=== PATIENT | female | born 1960 | race Caucasian/White ===

== ENCOUNTER 2017-08-20 18:54 | Emergency (ER) | payer OTHER, MEDICAID ==
[2017-08-20 19:02] VITALS: BP 131/84; BMI 29.2
--- NOTE | 2017-08-20 19:21 | DR.GENAD ---
HPI - PCP Primary Care Physician: nfd - Complaint/Symptoms Chief Complaint Doctors Comments: Patient denies trauma. Admits to pain of left hand digit #3 (MPJ) Chief Complaint:: pain in left hand - Source History Provided: Patient - Mode of Arrival Mode of Arrival: Ambulatory - Timing Onset of Chief Complaint: 08/20/17 PMH - PMH Past Medical History: Yes Past Medical History: Anxiety, Arthritis, Coronary Artery Disease, Depression, GERD, Hypertension Past Medical History Comment: cabrera irwin, chronic pack pain Past Surgical History: Yes Surgical History: ADMIN ASST Surgery, Other Past Surgical History Comment: ablasion, tubal - Family History History of Family Medical Conditions: Yes Family Medical History: Cancer, [place], Coronary Artery Disease, Hypertension - Social History Does patient currently use any type of tobacco product: No Have you used tobacco products in the last 12 months: No Type of Tobacco Use: None Does any household member use tobacco: No Alcohol Use: None Do you use any recreational Drugs:: No Lives With: Alone Lives Where: Home - infectious screening In the last 2 months have you had wt loss of >10#?: NO Have you had fever, night sweats or hemotysis?: No Have you traveled outside the country in the last 6 months?: No Isolation: Standard ROS - Review of Systems Constitutional: negative: Diaphoresis Eyes: No Symptoms Reported ENTM: No Symptoms Reported Respiratoy: No Symptoms Reported Cardiovascular: No Symptoms Reported Gastrointestinal/Abdominal: No Symptoms Reported Genitourinary: No Symptoms Reported Neurological: No Symptoms Reported Musculoskeletal: No Symptoms Reported Integumentary: No Symptoms Reported Hematologic/Lymphatic: No Symptoms Reported Endocrine: No Symptoms Reported Psychiatric: No Symptoms Reported All Other Systems: Reviewed and Negative PE - Vital Signs Vitals: Temperature 98.5 F Pulse Rate 78 Respiratory Rate 16 Blood Pressure [Right Arm] 103/63 Blood Pressure [Left Arm] 141/70 Blood Pressure 131/84 O2 Sat by Pulse Oximetry 95 - General General Appearance: Alert, In No Apparent Distress - Head Head Exam: Normal Inspection, Atraumatic - Eyes Eye exam: Normal Appearance, PERRL, EOMI - ENT ENT Exam: Normal Exam External Ear Exam: Normal External Inspection TM/Canal Exam: Bilateral Normal Nose Exam: Normal Nose Exam Mouth Exam: Normal Inspection Throat Exam: Normal Inspection - Neck Neck Exam: Normal Inspection, Full ROM - Chest Chest Inspection: Normal Inspection - Respiratory Respiratory Exam: Normal Lung Sounds Bilat Respiratory Exam: Bilateral Clear to Auscultation - Cardiovascular Cardiovascular Exam: Regular Rate, Normal Rhythm - Abdominal Exam Abdominal Exam: Normal Inspection, Normal Bowel Sounds Abdominal Tenderness: negative: RUQ, RLQ, LUQ, LLQ, Epigastrium, Suprapubic, Diffuse, Mild, Moderate, Severe, Other - Extremities Extremities Exam: Normal Inspection, Full ROM - Back Back Exam: Normal Inspection - Neurologic Neurological Exam: Alert, Oriented X3, CN II-XII Intact - Psychiatric Psychiatric Exam: Normal Affect - Skin Skin Exam: Warm, Dry, Intact ROR - XRAY XRAY Interpreted by: Self (negative) - Diagnosis Discharge Problem: Contusion of hand, left Qualifiers: Encounter type: initial encounter Qualified Code(s): S60.222A - Contusion of left hand, initial encounter - Discharge Plan Condition: Stable - Follow ups/Referrals Follow ups/Referrals: NFD,None [Primary Care Provider] - 3 days - Instructions
--- NOTE | 2017-08-20 22:14 | RAD ---
EXAM: Left hand x-ray INDICATION: Pain 4th digit COMPARISION: No priors for comparison TECHNIQUE: AP, lateral, and oblique, three views FINDINGS: No acute fracture or dislocation. The joint spaces are preserved. The soft tissues are normal. No rad iopaque foreign body. IMPRESSION: Normal left hand x-ray exam Reported By:
== END 2017-08-20 20:10 | disposition home or self-care (01) ==
LOC: ER 19:04
DX: S60.222A Contusion of left hand, initial encounter (principal); Y33.XXXA Other specified events, undetermined intent, initial encounter; Y92.9 Unspecified place or not applicable
CPT/HCPCS: 73130; 99282

== ENCOUNTER → 2018-01-28 | Outpatient (CLI) | payer OTHER, MEDICAID ==
--- NOTE | 2018-01-28 14:25 | MRI ---
MRI lumbar spine without contrast. Indication: Chronic lower back pain Technique: Multiplanar, multi sequence imaging of the lumbar spine without IV contrast administration . Findings: Lumbar spine alignment is maintained. There is mild endplate degenerative change at L5-S1. Diffuse disc desiccation is noted throughout the lumbar spine with disc space loss at L4-5 and L5-S1. No localizing bone marrow signal abnormality. No prevertebral or paraspinal soft tissue swelling. Co nus has a normal termination. No abnormality identified within visualized abdomen or pelvis. At T12-L1 unremarkable At L1-2 unremarkable At L2-3 mild facet arthropathy without disc bulge, spinal canal or bony neural foraminal stenosis. At L3-4 broad-based disc bulge with small annular tear within the posterior disc bulge along with fac et arthropathy causes kqdl-hu-fdhmlwid spinal canal stenosis with mild right lateral recess compressi on. No significant bony neural foraminal stenosis. At L4-5 broad-based disc bulge with a right paracentral along with ligamentum flavum hypertrophy and moderate facet arthropathy causes severe spinal canal stenosis and right greater than left lateral re cess compression. There is moderate right and huyv-ob-xfkhhmbz left-sided bony neural foraminal steno sis. At L5-S1 right paracentral disc protrusion with mild facet arthropathy causes mild spinal canal steno sis and moderate right lateral recess compression/effacement of the transiting right S1 nerve root. T here is moderate right and mild left-sided bony neural foraminal stenosis. Impression: Multilevel discogenic degenerative change and facet arthropathy causing varying degrees o f spinal canal and neural foraminal stenosis as described above. Reported By:
== END | disposition home or self-care (01) | DRG 552 ==
LOC: RAD 08:27
PROVIDERS: ATTEND Nurse Practitioner Family
DX: M51.36 Other intervertebral disc degeneration, lumbar region (principal); M51.37 Other intervertebral disc degeneration, lumbosacral region; M48.061 Spinal stenosis, lumbar region without neurogenic claudication
CPT/HCPCS: 72148

== ENCOUNTER → 2018-02-11 | Outpatient (CLI) | payer OTHER, MEDICAID ==
[2018-02-11 10:51] LABS: BASOPHILS # (AUTO) 0.1 X10^3/uL (0.0-0.1); BASOPHILS % (AUTO) 1.3 % (0.2-1.0); EOSINOPHILS # (AUTO) 0.2 x10^3/uL (0.0-0.2); EOSINOPHILS % (AUTO) 3.3 % (0.9-2.9); HEMATOCRIT 36.7 % (36.0-47.0); HEMOGLOBIN 12.3 g/dL (12.0-16.0); LYMPHOCYTES # (AUTO) 1.8 X10^3/uL (1.3-2.9); LYMPHOCYTES % (AUTO) 28.5 % (21.0-51.0); MEAN CORPUSCULAR HEMOGLOBIN 28.1 pg (27.0-34.0); MEAN CORPUSCULAR HGB CONC 33.4 g/dL (33.0-35.0); MEAN CORPUSCULAR VOLUME 84.2 fL (80.0-100.0); MEAN PLATELET VOLUME 7.9 fL (7.4-11.0); MONOCYTES # (AUTO) 0.5 x10^3/uL (0.3-0.8); MONOCYTES % (AUTO) 7.7 % (0.0-13.0); NEUTROPHILS # (AUTO) 3.8 x10^3/uL (2.2-4.8); NEUTROPHILS % (AUTO) 59.2 % (42.0-75.0); PLATELET COUNT 353 X10^3/uL (150.0-450.0); RED BLOOD COUNT 4.36 X10^6/uL (3.5-5.4); RED CELL DISTRIBUTION WIDTH 14.7 % (11.6-16.5); WHITE BLOOD COUNT 6.3 X10^3/uL (3.6-10.0)
[2018-02-11 11:13] LABS: ALANINE AMINOTRANSFERASE 26 Units/L (12-78); ALBUMIN 3.7 g/dL (3.4-5.0); ALKALINE PHOSPHATASE 105 Units/L (46-116); ASPARTATE AMINO TRANSFERASE 18 Units/L (15-37); BLOOD UREA NITROGEN 19 mg/dL (7-18); CALCIUM 8.7 mg/dL (8.5-10.1); CHLORIDE 106 mmol/L (98-107); CHOL/HDL RATIO 3.7 (0.0-5.0); CHOLESTEROL 171 mg/dL (0-200); CREATININE 0.82 mg/dL (0.55-1.02); HDL CHOLESTEROL 46 mg/dL (40-60); SODIUM 141 mmol/L (136-145); TOTAL PROTEIN 7.4 g/dL (6.4-8.2); TRIGLYCERIDES 70 mg/dL (0-150); TSH (3RD GENERATION) 0.869 uIU/mL (0.358-3.74); eGFR BLACK RACES > 60 (>60); eGFR NON BLACK RACES > 60 (>60)
== END ==
LOC: LAB 10:23
PROVIDERS: ATTEND Internal Medicine Cardiovascular Disease
DX: R53.83 Other fatigue (principal); R79.89 Other specified abnormal findings of blood chemistry
CPT/HCPCS: 36415; 80053; 80061; 84443; 85025

== ENCOUNTER → 2018-02-17 | Outpatient (CLI) | payer OTHER, MEDICAID ==
--- NOTE | 2018-02-17 13:46 | CT ---
Indication: Pain Exam: CT cervical spine without contrast. Technique: Axial spiral images were obtained from the base the skull through the clavicles without co ntrast and reconstructed at 2 mm intervals with coronal and sagittal multiplanar reconstructions. Aut omated dose control was utilized. Findings: The cervical vertebra are well aligned. There is nqfg-wr-ihxalxgd disc space narrowing thro ughout with mild marginal osteophytes throughout. No fracture or subluxation is seen. The posterior e lements are intact. The prevertebral soft tissues are normal. The atlantoaxial joint is normal. The n eural foramina clear. The visualized lung apices are clear. No obvious large disc bulge or herniation can be seen and there is no significant spinal stenosis. The paravertebral soft tissues are normal. Impression: Mild to moderate degenerative disc changes throughout the cervical spine with no acute abnormality se en. Reported By:
--- NOTE | 2018-02-17 13:51 | CT ---
Indication: Back pain Exam: CT lumbar spine without contrast. Technique: Axial spiral images were obtained from T12 through the upper sacrum and reconstructed in t he axial plane at 2 mm intervals with coronal and sagittal multiplanar reconstructions. Automated dos e control was utilized. Findings: The lumbar vertebra are well aligned. There is wgtt-gu-qkrmzymf disc space narrowing throug hout which is most severe at L5-S1 with prominent osteophytes at this level. No fracture or subluxati on is seen. The vertebral body height is well maintained throughout. There are sclerotic changes of f acets inferiorly with no pars defects. The paravertebral soft tissues are normal. There is a small di sc bulge and posterior osteophytes at L5-S1 causing mild dural sac effacement and mild neuroforaminal narrowing bilaterally. There is a small asymmetric disc bulge at L4-5 lateralizing to the left causi ng mild dural sac effacement and mild neuroforaminal narrowing on the left. There is a small disc bul ge at L3-4 causing mild dural sac effacement. No aggressive osseous lesion is seen. There are mild hy pertrophic changes of facets throughout with ligament flavum hypertrophy and congenital shortening of the pedicles causing diffuse mild spinal stenosis . Impression: Zsfj-yw-adsuvtfm degenerative disc changes throughout the lumbar spine which is most severe at L5-S1 with no acute abnormality seen. Small disc bulge and posterior osteophytes at L5-S1 causing mild dural sac effacement Asymmetric disc bulge at L4-5 lateralizing to the left causing mild dural sac effacement and neurofor aminal narrowing on the left. Suggest MRI follow-up , if indicated clinically. Small disc bulge at L3-4 . Mild osteoarthritic changes of the facets and congenital shortening of the pedicles causing diffuse m ild spinal stenosis. Reported By:
--- NOTE | 2018-02-17 14:00 | CT ---
CT THORACIC SPINE WITHOUT CONTRAST CLINICAL HISTORY: 57-year-old female with chronic back pain. COMPARISON: None. TECHNIQUE: Multiple, noncontrasted axial CT images were obtained from the cervical-thoracic junction to the thoracolumbar junction and reformatted in the sagittal and coronal planes. FINDINGS: There is a normal thoracic kyphosis. There is preservation of vertebral body and disc space height. T he posterior elements are normal in appearance and alignment. There is no evidence of significant derrell ral foraminal stenosis or central canal compromise. Moderate hiatal hernia. 5.3 x 4.4 x 5.5 cm (AP, transverse and craniocaudad) lesion within the volunteer recruitment coordinator ior mediastinum eccentric to the right abutting the esophagus that contains fat and simple fluid with vasculature present, which appears to be herniated mesentery. Differential discussed below. IMPRESSION: 1. No evidence of acute fracture or malalignment of the thoracic spine. 2. Moderate hiatal hernia. 3. Right-sided posterior mediastinal mass as described above that appears to be herniated mesentery. Differential considerations include but are not limited to esophageal duplication and bronchogenic cy st. Consider upper endoscopy common surgical consultation for diagnostic laparoscopy and CT of the th orax with contrast for further delineation. Reported By:
== END ==
LOC: RAD 12:50
PROVIDERS: ATTEND Nurse Practitioner Family
DX: M54.5 Low back pain (principal); G89.29 Other chronic pain; M51.26 Other intervertebral disc displacement, lumbar region; M51.27 Other intervertebral disc displacement, lumbosacral region; M25.78 Osteophyte, vertebrae
CPT/HCPCS: 72125; 72128; 72131

== ENCOUNTER 2018-02-24 16:28 | Inpatient (IN) | payer OTHER, MEDICAID ==
[2018-02-24] MEDS: DUONEB 0.5 MG/3 MG NEB SCH ×2 (17:39→20:30)
[2018-02-24] MEDS ORDERED: SALINE 3% 15 ML NEB TX ONE (17:43)
[2018-02-24] MEDS ORDERED: TUSSIONEX PENNKINETIC SUSP PO PRN (17:47)
[2018-02-24] MEDS ORDERED: NS 100 ML IV 100 ML IV ONE (17:59)
[2018-02-24] MEDS ORDERED: ZOSYN VIAL 4.5 GM IV ONE (17:59)
[2018-02-24] MEDS ORDERED: NS 1/2 1000 ML IV 1,000 ML IV ONE (18:00)
[2018-02-24 18:13] VITALS: BMI 28.0
[2018-02-24] MEDS ORDERED: NORCO 7.5/325 MG TAB PO PRN (18:13)
[2018-02-24] MEDS ORDERED: LASIX PO PRN (18:13)
--- NOTE | 2018-02-24 18:20 | DR.H&P ---
H&P - History & Physical for Day of: H&P Date: 02/24/18 - Chief Complaint Chief Complaint: SOB, CCC, FEVER, WHEEZING, CENTRAL CHEST PAIN - Allergies Allergies/Adverse Reactions: Allergies Allergy/AdvReac Type Severity Reaction Status Date / Time sulfamethoxazole Allergy Verified 02/24/18 17:01 [From Bactrim] trimethoprim [From Bactrim] Allergy Verified 02/24/18 17:01 verapamil Allergy Verified 02/24/18 17:01 - History of Present Illness History of Present Illness: 57 WF DIRECT ADMIT FROM DR DEL CID OFFICE WITH CO CCC WITH FEVER, CENTRAL CHEST TIGHTNESS, NAUSEA WITH VOMTING AND WHEEZING. PT HAS BEEN TREATED ON OP BASIS FOR BRONCHITIS, PT TOOK ROUND OF ZITHROMAX, STEROIDS AND IM ROCEPHIN AND DEXAMETHASONE WITHOUT IMPROVEMENT. PT STATES SHE FEELS CHEST PRESSURE AND FATIGUE. PT HAS PMH OF COPD, HTN, JOYA, CAD/ARRHYTHMIA, OA. PT ADMITTED FOR TREATEMENT AND EVALUATION OF CHEST PAIN, RESP ILLNESS - Past Medical History Past Medical History: Anxiety, Arthritis, Coronary Artery Disease, Depression, GERD, Hypertension - Past Surgical History Surgical History: LAWN MAINTENANCE WORKER Surgery, Other - Family History Family Medical History: Cancer, [place], Coronary Artery Disease, Hypertension - Social History Does patient currently use any type of tobacco product: No Have you used tobacco products in the last 12 months: No Type of Tobacco Use: None Alcohol Use: None Drug Use: None - Medications Home Medications: Albuterol Sulfate [Ventolin Hfa Inhaler] 2 puff INH QID PRN 02/24/18 [History Confirmed 02/24/18] Alprazolam 1 tab PO BID PRN 02/24/18 [History Confirmed 02/24/18] Esomeprazole Magnesium [NEXIUM 40 MG *] 1 tab PO DAILY 02/24/18 [History Confirmed 02/24/18] Fexofenadine HCl 1 tab PO DAILY 02/24/18 [History Confirmed 02/24/18] Furosemide 1 tab PO DAILY PRN 02/24/18 [History Confirmed 02/24/18] Hydrocodone-Acet 7.5 mg/325 mg [NORCO 7.5 MG/325 MG *] 1 tab PO Q8H PRN [History Confirmed 02/24/18] Montelukast Sodium 1 tab PO HS 02/24/18 [History Confirmed 02/24/18] Potassium Chloride [Klor-Con Sprinkle] 1 tab PO DAILY 02/24/18 [History Confirmed 02/24/18] - Review of Systems Constitutional: Chills, Weakness ENT: No Symptoms Reported Respiratory: Cough, Shortness of Breath, Pleuritic Pain Cardiovascular: denies: Edema Gastrointestinal: Nausea, Vomiting Genitourinary: No Symptoms Reported Musculoskeletal: Back Pain, Neck Pain Skin: No Symptoms Reported Neurological: Weakness - Physical Exam Vital Signs: Temperature 98.3 F Pulse Rate [Right Brachial] 54 Pulse Rate 84 Respiratory Rate 20 Blood Pressure [Right Arm] 129/66 Blood Pressure [Left Arm] 141/70 Blood Pressure 131/84 O2 Sat by Pulse Oximetry 98 Oriented: Normal Throat: Normal Cardiovascular: negative: Edema : Normal Tenderness: Epigastric Musculoskeletal: Back:Thoracic, Back:Lumbar Psychiatric: Anxiety Affect: Anxious - Assessment/Plan (1) Acute bronchitis Qualifiers: Bronchitis organism: unspecified organism Qualified Code(s): J20.9 - Acute bronchitis, unspecified Status: Acute Plan: ADMIT, PNEUMONIA PATHWAY. BLOOD AND SPUTUM CUTLURES. IV ATBX, RESP THERAPY. RESUME HOME MEDS. CXR ON ADMISSION, SUPPLEMENTAL O2 BP MONITORING. EKG CARDIAC PROFILE ON ADMISSION (2) Chest pain Status: Acute Plan: CT THORAX WITH CONTRAST, SEE PREVIOUS ABNORMAL T SPINE CT. BP MONITORING , RESP TREATMENT, CARDIAC PROFILE. EKG MONITORING (3) Shortness of breath Status: Acute (4) JOYA (generalized anxiety disorder) Status: Acute (5) GERD (gastroesophageal reflux disease) Status: Acute (6) HTN (hypertension) Qualifiers: Hypertension type: essential hypertension Qualified Code(s): I10 - Essential (primary) hypertension Status: Chronic (7) Osteoarthritis Qualifiers: Osteoarthritis location: multiple joints Status: Chronic
[2018-02-24 18:26] LABS: BASOPHILS # (AUTO) 0.1 X10^3/uL (0.0-0.1); EOSINOPHILS % (AUTO) 0.5 % (0.9-2.9); HEMATOCRIT 35.5 % (36.0-47.0); LYMPHOCYTES # (AUTO) 2.2 X10^3/uL (1.3-2.9); LYMPHOCYTES % (AUTO) 28.2 % (21.0-51.0); MEAN CORPUSCULAR HEMOGLOBIN 28.3 pg (27.0-34.0); MEAN CORPUSCULAR HGB CONC 33.8 g/dL (33.0-35.0); MEAN CORPUSCULAR VOLUME 83.6 fL (80.0-100.0); MEAN PLATELET VOLUME 7.4 fL (7.4-11.0); MONOCYTES # (AUTO) 0.7 x10^3/uL (0.3-0.8); MONOCYTES % (AUTO) 9.2 % (0.0-13.0); NEUTROPHILS # (AUTO) 4.9 x10^3/uL (2.2-4.8); NEUTROPHILS % (AUTO) 61.1 % (42.0-75.0); PLATELET COUNT 322 X10^3/uL (150.0-450.0); RED BLOOD COUNT 4.24 X10^6/uL (3.5-5.4); RED CELL DISTRIBUTION WIDTH 14.7 % (11.6-16.5)
[2018-02-24] MEDS: LEVAQUIN PREMIX IV 750 MG 750 MG/150 ML BAG IV SCH (18:29)
[2018-02-24] MEDS: ZOSYN VIAL 4.5 GM 4.5 GM in NS 100 ML IV + SPIKE MINIBAG* 100 ML IV SCH ×2 (18:30→21:03)
[2018-02-24] MEDS: NS 1/2 1000 ML IV 1,000 ML IV SCH (18:30)
[2018-02-24 18:39] LABS: ALANINE AMINOTRANSFERASE 22 Units/L (12-78); ALBUMIN 3.4 g/dL (3.4-5.0); ALKALINE PHOSPHATASE 92 Units/L (46-116); ASPARTATE AMINO TRANSFERASE 13 Units/L (15-37); BLOOD UREA NITROGEN 21 mg/dL (7-18); CALCIUM 8.7 mg/dL (8.5-10.1); CARBON DIOXIDE 30.5 mmol/L (21-32); CHLORIDE 103 mmol/L (98-107); CREATININE 0.82 mg/dL (0.55-1.02); SODIUM 142 mmol/L (136-145); TOTAL PROTEIN 7.4 g/dL (6.4-8.2); eGFR BLACK RACES > 60 (>60); eGFR NON BLACK RACES > 60 (>60)
[2018-02-24 18:52] LABS: CKMB % 2.8 % (<4); CREATINE KINASE 36 Units/L (26-192); CREATINE KINASE MB < 1.0 ng/mL (0-4.0); TROPONIN I < 0.02 ng/mL (0-1.5)
[2018-02-24] MEDS ORDERED: FLECAINIDE ACETATE 100 MG PO SCH (21:00)
[2018-02-24] MEDS: CELEXA PO SCH (21:00)
[2018-02-24] MEDS: DIOVAN TAB 80 MG PO SCH (21:01)
[2018-02-24] MEDS: ROBITUSSIN DM PO SCH (21:02)
[2018-02-24] MEDS: SINGULAIR TAB 10 MG PO SCH (21:02)
--- NOTE | 2018-02-24 22:07 | RAD ---
PA and lateral chest Indication: Concern for pneumonia Comparison: 05/27/2011. Findings: Lungs are clear the heart size is normal. No pleural effusion or pneumothorax. There is a m oderate-sized hiatal hernia is noted. No acute osseous abnormality. Impression: 1.No acute cardiopulmonary abnormality. 2. Moderate-sized hiatal hernia. Reported By:
[2018-02-25] MEDS: DUONEB 0.5 MG/3 MG NEB SCH ×4 (01:10→12:40)
[2018-02-25] MEDS ORDERED: NS 1/2 1000 ML IV 1,000 ML IV ONE (05:10)
[2018-02-25] MEDS: ZOSYN VIAL 4.5 GM 4.5 GM in NS 100 ML IV + SPIKE MINIBAG* 100 ML IV SCH ×3 (05:53→21:03)
[2018-02-25] MEDS: NS 1/2 1000 ML IV 1,000 ML IV SCH ×2 (05:53→07:39)
[2018-02-25 06:33] LABS: BASOPHILS # (AUTO) 0.1 X10^3/uL (0.0-0.1); EOSINOPHILS # (AUTO) 0.1 x10^3/uL (0.0-0.2); EOSINOPHILS % (AUTO) 1.5 % (0.9-2.9); HEMATOCRIT 32.3 % (36.0-47.0); LYMPHOCYTES # (AUTO) 2.4 X10^3/uL (1.3-2.9); LYMPHOCYTES % (AUTO) 33.9 % (21.0-51.0); MEAN CORPUSCULAR VOLUME 85.2 fL (80.0-100.0); MEAN PLATELET VOLUME 7.4 fL (7.4-11.0); MONOCYTES # (AUTO) 0.7 x10^3/uL (0.3-0.8); MONOCYTES % (AUTO) 10.3 % (0.0-13.0); NEUTROPHILS # (AUTO) 3.8 x10^3/uL (2.2-4.8); NEUTROPHILS % (AUTO) 53.3 % (42.0-75.0); PLATELET COUNT 275 X10^3/uL (150.0-450.0); RED BLOOD COUNT 3.79 X10^6/uL (3.5-5.4); RED CELL DISTRIBUTION WIDTH 14.8 % (11.6-16.5); WHITE BLOOD COUNT 7.1 X10^3/uL (3.6-10.0)
[2018-02-25] MEDS ORDERED: NS 100 ML IV 100 ML IV ONE (06:42)
[2018-02-25 06:47] LABS: ALANINE AMINOTRANSFERASE 20 Units/L (12-78); ALKALINE PHOSPHATASE 78 Units/L (46-116); ASPARTATE AMINO TRANSFERASE 14 Units/L (15-37); BLOOD UREA NITROGEN 17 mg/dL (7-18); CALCIUM 8.3 mg/dL (8.5-10.1); CARBON DIOXIDE 29.5 mmol/L (21-32); CHLORIDE 104 mmol/L (98-107); COR CA(FOR HYPOALB) 9.1 mg/dL (8.5-10.1); CREATININE 0.82 mg/dL (0.55-1.02); SODIUM 143 mmol/L (136-145); TOTAL PROTEIN 6.5 g/dL (6.4-8.2); eGFR BLACK RACES > 60 (>60); eGFR NON BLACK RACES > 60 (>60)
--- NOTE | 2018-02-25 08:41 | CT ---
HISTORY: Chronic back pain and mid back pain for 2 weeks. Abnormal thoracic spine CT on 02/17/2018. Study: CT chest with IV contrast Comparison: CT scan of the thoracic spine done 02/17/[address] done 07/10/2016. Technique: Multiple axial images of the chest were obtained from the thoracic inlet to the upper abdo men during the administration of IV contrast. Coronal and sagittal images are also reviewed. Dose red uction techniques utilized automatic exposure control. Findings: The mediastinum does not demonstrate significant pathological lymphadenopathy. There is no pericardi al effusion observed. The thoracic aorta is normal in its contour without evidence for aneurysmal di latation. The central pulmonary arterial system does not demonstrate central filling defects to sugg est pulmonary emboli. Evaluation of the lung parenchyma reveals stable noncalcified nodules present involving the right aide g. These range in size from 4-6 mm. Also a few tiny nodules are present. No new nodules are identifie d.. There is no evidence of consolidation or pleural fluid. The right lower posterior mediastinal ma ss is again seen. This measures about 4.4 x 5 point 0 x 5.6 cm. This appears to be contiguous with th e esophagus on the right side. This does contain some fatty elements as well as solid elements. A dif ferential diagnosis has been offered in is unchanged. No evidence of esophageal obstruction is seen. There is a hiatal hernia containing gastric fundus also. The bony thorax is unremarkable in its appea gutierrez. Liver and adrenal glands unremarkable. IMPRESSION: Stable noncalcified nodules present involving the right lung. No new nodules are seen. Since the nodu les have been stable for almost 2 years, no further CT follow-up may be needed. No evidence of thoracic aortic aneurysm or pulmonary embolus. No evidence of infiltrate or pleural fluid. Stable right lower posterior mediastinal mass. This does appear to be contiguous with the esophagus o n the right side. Differential diagnosis has been offered and is unchanged. Primary consideration wou ld be esophageal duplication cyst, bronchogenic cyst or mesenteric hernia. Hiatal hernia containing a portion of the gastric fundus. Reported By:
[2018-02-25] MEDS: LEVAQUIN PREMIX IV 750 MG 750 MG/150 ML BAG IV SCH (08:56)
[2018-02-25] MEDS: CELEBREX PO SCH (08:56)
[2018-02-25] MEDS: MICRO K EXTEN CAP 10 MEQ PO SCH (08:56)
[2018-02-25] MEDS: NexIUM PO SCH (08:56)
[2018-02-25] MEDS: ALLEGRA PO SCH (08:56)
[2018-02-25] MEDS: ROBITUSSIN DM PO SCH ×4 (08:57→21:03)
[2018-02-25] MEDS: SENOKOT PO SCH (08:57)
[2018-02-25] MEDS: TAMBOCOR PO SCH ×2 (08:57→21:03)
[2018-02-25] MEDS ORDERED: PATIENT'S HOME MEDICATION (Celecoxib [Celecoxib] 200 MG) PO SCH (09:00)
[2018-02-25] MEDS ORDERED: TOPIRAMATE 50 MG PO SCH (09:00)
[2018-02-25] MEDS ORDERED: TOPAMAX PO SCH (09:00)
[2018-02-25] MEDS: PULMICORT NEB TX 0.5 MG NEB SCH ×2 (09:00→20:25)
[2018-02-25] MEDS ORDERED: RESTORIL CAP 15 MG PO PRN (14:00)
--- NOTE | 2018-02-25 17:33 | PCM.PROG ---
Progress Note - Progress Note for Day of Date: 02/25/18 - Subjective Subjective: 57 WF ADMITTED ON 02/24 FOR CHEST PAIN/PRESSURE FAILED OUTPT AB. PT CURRENTLY ON IV ATBX, RESP THERAPY WITH IMPROVING WHEEZING. PT CO NAUSEA THIS AM AND DIZZINESS. REVIEVED CT WITH PT. WILL CONTINUE IV ATBX, RESP THERAPY, HOME MEDS. BP CONTROL, ADD BUDESONIDE NEB - Past Medical Family Social History Past Med/Fam/Surg Hx: No changes since H&P Allergies: Allergies sulfamethoxazole [From Bactrim] Allergy (Verified 02/24/18 17:01) trimethoprim [From Bactrim] Allergy (Verified 02/24/18 17:01) verapamil Allergy (Verified 02/24/18 17:01) - Review of Systems ROS: No change since H&P - Vital Signs and I&O's Vital Signs: Temperature 98.7 F Pulse Rate [Right Brachial] 71 Pulse Rate 68 Respiratory Rate 16 Blood Pressure [Right Arm] 99/52 Blood Pressure [Left Arm] 141/70 Blood Pressure 131/84 O2 Sat by Pulse Oximetry 95 Intake and Output: Intake & Output 02/23/18 02/24/18 02/25/18 02/26/18 11:59 11:59 11:59 11:59 Intake Total 600 830 Balance 600 830 - Physical Exam Oriented: Normal Eyes: Normal Ear: Normal Nose: Normal Throat: Normal Respiratory: Wheezes, Rhonchi Cardiovascular: negative: Edema : Normal Auscultation: Bowel Sounds: Normal Tenderness: Epigastric Skin: Normal Musculoskeletal: Back:Thoracic, Back:Lumbar Psychiatric: Anxiety Affect: Anxious Speech Pattern: Clear, Appropriate - Laboratory and Diagnostics Result Diagrams: 02/25/18 05:56 02/25/18 05:56 Labs: 02/24/18 18:25 Sputum - Expectorated Sputum Sputum Culture - Preliminary 02/24/18 18:25 Sputum - Expectorated Sputum - Final Laboratory WBC 7.1 X10^3/uL (3.6-10.0) 02/25/18 05:56 RBC 3.79 X10^6/uL (3.5-5.4) 02/25/18 05:56 Hgb 11.0 g/dL (12.0-16.0) L 02/25/18 05:56 Hct 32.3 % (36.0-47.0) L 02/25/18 05:56 MCV 85.2 fL (80.0-100.0) 02/25/18 05:56 MCH 29.0 pg (27.0-34.0) 02/25/18 05:56 MCHC 34.0 g/dL (33.0-35.0) 02/25/18 05:56 RDW 14.8 % (11.6-16.5) 02/25/18 05:56 Plt Count 275 X10^3/uL (150.0-450.0) 02/25/18 05:56 MPV 7.4 fL (7.4-11.0) 02/25/18 05:56 Neut % (Auto) 53.3 % (42.0-75.0) 02/25/18 05:56 Lymph % (Auto) 33.9 % (21.0-51.0) 02/25/18 05:56 [place] % (Auto) 10.3 % (0.0-13.0) 02/25/18 05:56 Eos % (Auto) 1.5 % (0.9-2.9) 02/25/18 05:56 Baso % (Auto) 1.0 % (0.2-1.0) 02/25/18 05:56 Neut # (Auto) 3.8 x10^3/uL (2.2-4.8) 02/25/18 05:56 Lymph # (Auto) 2.4 X10^3/uL (1.3-2.9) 02/25/18 05:56 [place] # (Auto) 0.7 x10^3/uL (0.3-0.8) 02/25/18 05:56 Eos # (Auto) 0.1 x10^3/uL (0.0-0.2) 02/25/18 05:56 Baso # (Auto) 0.1 X10^3/uL (0.0-0.1) 02/25/18 05:56 Absolute Nucleated RBC 0.0 /100WBC 02/25/18 05:56 Sodium 143 mmol/L (136-145) 02/25/18 05:56 Corrected Sodium TNP 02/25/18 05:56 Potassium 3.3 mmol/L (3.5-5.1) L 02/25/18 05:56 Chloride 104 mmol/L (98-107) 02/25/18 05:56 Carbon Dioxide 29.5 mmol/L (21-32) 02/25/18 05:56 BUN 17 mg/dL (7-18) 02/25/18 05:56 Creatinine 0.82 mg/dL (0.55-1.02) 02/25/18 05:56 Est GFR (MDRD) Af Amer > 60 (>60) 02/25/18 05:56 Est GFR (MDRD) Non-Af > 60 (>60) 02/25/18 05:56 Glucose 89 mg/dL (65-99) 02/25/18 05:56 Calcium 8.3 mg/dL (8.5-10.1) L 02/25/18 05:56 Corrected Calcium 9.1 mg/dL (8.5-10.1) 02/25/18 05:56 Total Bilirubin 0.10 mg/dL (0.2-1.0) L 02/25/18 05:56 AST 14 Units/L (15-37) L 02/25/18 05:56 ALT 20 Units/L (12-78) 02/25/18 05:56 Alkaline Phosphatase 78 Units/L (46-116) 02/25/18 05:56 Creatine Kinase 36 Units/L (26-192) 02/24/18 18:05 CK-MB (CK-2) < 1.0 ng/mL (0-4.0) 02/24/18 18:05 CK/CKMB % Calc 2.8 % (<4) 02/24/18 18:05 Troponin I < 0.02 ng/mL (0-1.5) 02/24/18 18:05 Total Protein 6.5 g/dL (6.4-8.2) 02/25/18 05:56 Albumin 3.0 g/dL (3.4-5.0) L 02/25/18 05:56 Globulin 3.5 g/dL (2.5-4.5) 02/25/18 05:56 Albumin/Globulin Ratio 0.9 Ratio (1.1-2.1) L 02/25/18 05:56 - Plan (1) Acute bronchitis Status: Acute Qualifiers: Bronchitis organism: unspecified organism Qualified Code(s): J20.9 - Acute bronchitis, unspecified Plan: CONTINUE PNEUMONIA PATHWAY. BLOOD AND SPUTUM CUTLURES COLLECTED ON ADMISSION. IV ATBX, RESP THERAPY. RESUME HOME MEDS. SUPPLEMENTAL O2 BP MONITORING. REVIEVED CT WITH PT. WILL CONTINUE IV ATBX, RESP THERAPY, HOME MEDS. BP CONTROL, ADD BUDESONIDE NEB (2) Chest pain Status: Acute Plan: CT THORAX WITH CONTRAST, SEE PREVIOUS ABNORMAL T SPINE CT. BP MONITORING , RESP TREATMENT, CARDIAC PROFILE. EKG MONITORING (3) Shortness of breath Status: Acute (4) JOYA (generalized anxiety disorder) Status: Acute (5) GERD (gastroesophageal reflux disease) Status: Acute (6) HTN (hypertension) Status: Chronic Qualifiers: Hypertension type: essential hypertension Qualified Code(s): I10 - Essential (primary) hypertension (7) Osteoarthritis Status: Chronic Qualifiers: Osteoarthritis location: multiple joints
[2018-02-25] MEDS: XOPENEX 1.25 MG/3 ML NEBULE NEB SCH ×2 (18:00→18:05)
[2018-02-25] MEDS ORDERED: DUONEB 0.5 MG/3 MG ONE ×2 (19:55→22:58)
[2018-02-25] MEDS: CELEXA PO SCH (21:02)
[2018-02-25] MEDS: DIOVAN TAB 80 MG PO SCH (21:02)
[2018-02-25] MEDS: SINGULAIR TAB 10 MG PO SCH (21:03)
[2018-02-25] MEDS: XANAX PO PRN (21:03)
[2018-02-26] MEDS: XOPENEX 1.25 MG/3 ML NEBULE NEB SCH ×4 (01:00→17:29)
[2018-02-26 04:21] LABS: BASOPHILS % (AUTO) 0.8 % (0.2-1.0); EOSINOPHILS # (AUTO) 0.2 x10^3/uL (0.0-0.2); EOSINOPHILS % (AUTO) 3.9 % (0.9-2.9); HEMATOCRIT 31.4 % (36.0-47.0); HEMOGLOBIN 10.6 g/dL (12.0-16.0); LYMPHOCYTES % (AUTO) 31.3 % (21.0-51.0); MEAN CORPUSCULAR HEMOGLOBIN 28.6 pg (27.0-34.0); MEAN CORPUSCULAR HGB CONC 33.6 g/dL (33.0-35.0); MEAN PLATELET VOLUME 7.2 fL (7.4-11.0); MONOCYTES # (AUTO) 0.6 x10^3/uL (0.3-0.8); MONOCYTES % (AUTO) 9.2 % (0.0-13.0); NEUTROPHILS # (AUTO) 3.5 x10^3/uL (2.2-4.8); NEUTROPHILS % (AUTO) 54.8 % (42.0-75.0); PLATELET COUNT 292 X10^3/uL (150.0-450.0); RED BLOOD COUNT 3.69 X10^6/uL (3.5-5.4); WHITE BLOOD COUNT 6.3 X10^3/uL (3.6-10.0)
[2018-02-26 04:32] LABS: ALANINE AMINOTRANSFERASE 18 Units/L (12-78); ALBUMIN 2.9 g/dL (3.4-5.0); ALKALINE PHOSPHATASE 76 Units/L (46-116); ASPARTATE AMINO TRANSFERASE 10 Units/L (15-37); BLOOD UREA NITROGEN 11 mg/dL (7-18); CALCIUM 8.3 mg/dL (8.5-10.1); CARBON DIOXIDE 31.9 mmol/L (21-32); CHLORIDE 105 mmol/L (98-107); COR CA(FOR HYPOALB) 9.2 mg/dL (8.5-10.1); SODIUM 144 mmol/L (136-145); TOTAL PROTEIN 6.3 g/dL (6.4-8.2); eGFR BLACK RACES > 60 (>60); eGFR NON BLACK RACES > 60 (>60)
[2018-02-26] MEDS: ZOSYN VIAL 4.5 GM 4.5 GM in NS 100 ML IV + SPIKE MINIBAG* 100 ML IV SCH ×3 (05:50→22:22)
[2018-02-26] MEDS: NS 1/2 1000 ML IV 1,000 ML IV SCH ×3 (06:00→17:10)
[2018-02-26] MEDS: MICRO K EXTEN CAP 10 MEQ PO SCH (08:32)
[2018-02-26] MEDS: ROBITUSSIN DM PO SCH ×4 (08:32→20:42)
[2018-02-26] MEDS: CELEBREX PO SCH (08:32)
[2018-02-26] MEDS: NexIUM PO SCH (08:32)
[2018-02-26] MEDS: ALLEGRA PO SCH (08:32)
[2018-02-26] MEDS: SENOKOT PO SCH (08:32)
[2018-02-26] MEDS: LEVAQUIN PREMIX IV 750 MG 750 MG/150 ML BAG IV SCH (08:32)
[2018-02-26] MEDS: TAMBOCOR PO SCH ×2 (08:33→20:42)
[2018-02-26] MEDS: PULMICORT NEB TX 0.5 MG NEB SCH (12:15)
[2018-02-26] MEDS ORDERED: LASIX IVP ONE (13:27)
[2018-02-26] MEDS ORDERED: K-LYTE EFFERVESCENT PO ONE (13:28)
--- NOTE | 2018-02-26 13:46 | PCM.PROG ---
Progress Note - Progress Note for Day of Date: 02/26/18 - Subjective Subjective: 57 WF ADMITTED ON 02/24 FOR CHEST PAIN/PRESSURE FAILED OUTPT AB. PT CURRENTLY ON IV ATBX, RESP THERAPY WITH IMPROVING WHEEZING CONTINUED COUGH AND RHONCHI. WILL CONTINUE IV ATBX, RESP THERAPY, HOME MEDS. BP CONTROL, LASIX IV X 1 DOSE, MUCOMYST TO NEBS - Past Medical Family Social History Past Med/Fam/Surg Hx: No changes since H&P Allergies: Allergies sulfamethoxazole [From Bactrim] Allergy (Verified 02/24/18 17:01) trimethoprim [From Bactrim] Allergy (Verified 02/24/18 17:01) verapamil Allergy (Verified 02/24/18 17:01) - Review of Systems ROS: No change since H&P - Vital Signs and I&O's Vital Signs: Temperature 96.6 F Pulse Rate [Right Brachial] 70 Pulse Rate 80 Respiratory Rate 19 Blood Pressure [Right Arm] 102/64 Blood Pressure [Left Arm] 141/70 Blood Pressure 131/84 O2 Sat by Pulse Oximetry 95 Intake and Output: Intake & Output 02/24/18 02/25/18 02/26/18 02/27/18 11:59 11:59 11:59 11:59 Intake Total 600 1820 Balance 600 1820 - Physical Exam Oriented: Normal Eyes: Normal Ear: Normal Nose: Normal Throat: Normal Respiratory: Rhonchi Cardiovascular: negative: Edema : Normal Auscultation: Bowel Sounds: Normal Tenderness: Epigastric Skin: Normal Musculoskeletal: Back:Thoracic, Back:Lumbar Psychiatric: Anxiety Affect: Anxious Speech Pattern: Clear, Appropriate - Laboratory and Diagnostics Result Diagrams: 02/26/18 03:50 02/26/18 03:50 Labs: 02/24/18 18:10 Blood Blood Culture - Preliminary 02/24/18 18:05 Blood Blood Culture - Preliminary 02/24/18 18:25 Sputum - Expectorated Sputum Sputum Culture - Final 02/24/18 18:25 Sputum - Expectorated Sputum - Final Laboratory WBC 6.3 X10^3/uL (3.6-10.0) 02/26/18 03:50 RBC 3.69 X10^6/uL (3.5-5.4) 02/26/18 03:50 Hgb 10.6 g/dL (12.0-16.0) L 02/26/18 03:50 Hct 31.4 % (36.0-47.0) L 02/26/18 03:50 MCV 85.0 fL (80.0-100.0) 02/26/18 03:50 MCH 28.6 pg (27.0-34.0) 02/26/18 03:50 MCHC 33.6 g/dL (33.0-35.0) 02/26/18 03:50 RDW 15.0 % (11.6-16.5) 02/26/18 03:50 Plt Count 292 X10^3/uL (150.0-450.0) 02/26/18 03:50 MPV 7.2 fL (7.4-11.0) L 02/26/18 03:50 Neut % (Auto) 54.8 % (42.0-75.0) 02/26/18 03:50 Lymph % (Auto) 31.3 % (21.0-51.0) 02/26/18 03:50 Benzie % (Auto) 9.2 % (0.0-13.0) 02/26/18 03:50 Eos % (Auto) 3.9 % (0.9-2.9) H 02/26/18 03:50 Baso % (Auto) 0.8 % (0.2-1.0) 02/26/18 03:50 Neut # (Auto) 3.5 x10^3/uL (2.2-4.8) 02/26/18 03:50 Lymph # (Auto) 2.0 X10^3/uL (1.3-2.9) 02/26/18 03:50 Benzie # (Auto) 0.6 x10^3/uL (0.3-0.8) 02/26/18 03:50 Eos # (Auto) 0.2 x10^3/uL (0.0-0.2) 02/26/18 03:50 Baso # (Auto) 0.0 X10^3/uL (0.0-0.1) 02/26/18 03:50 Absolute Nucleated RBC 0.0 /100WBC 02/26/18 03:50 Sodium 144 mmol/L (136-145) 02/26/18 03:50 Corrected Sodium TNP 02/26/18 03:50 Potassium 3.2 mmol/L (3.5-5.1) L 02/26/18 03:50 Chloride 105 mmol/L (98-107) 02/26/18 03:50 Carbon Dioxide 31.9 mmol/L (21-32) 02/26/18 03:50 BUN 11 mg/dL (7-18) 02/26/18 03:50 Creatinine 0.80 mg/dL (0.55-1.02) 02/26/18 03:50 Est GFR (MDRD) Af Amer > 60 (>60) 02/26/18 03:50 Est GFR (MDRD) Non-Af > 60 (>60) 02/26/18 03:50 Glucose 100 mg/dL (65-99) H 02/26/18 03:50 Calcium 8.3 mg/dL (8.5-10.1) L 02/26/18 03:50 Corrected Calcium 9.2 mg/dL (8.5-10.1) 02/26/18 03:50 Magnesium 1.7 mg/dL (1.7-2.9) 02/26/18 03:50 Total Bilirubin 0.20 mg/dL (0.2-1.0) 02/26/18 03:50 AST 10 Units/L (15-37) L 02/26/18 03:50 ALT 18 Units/L (12-78) 02/26/18 03:50 Alkaline Phosphatase 76 Units/L (46-116) 02/26/18 03:50 Creatine Kinase 36 Units/L (26-192) 02/24/18 18:05 CK-MB (CK-2) < 1.0 ng/mL (0-4.0) 02/24/18 18:05 CK/CKMB % Calc 2.8 % (<4) 02/24/18 18:05 Troponin I < 0.02 ng/mL (0-1.5) 02/24/18 18:05 Total Protein 6.3 g/dL (6.4-8.2) L 02/26/18 03:50 Albumin 2.9 g/dL (3.4-5.0) L 02/26/18 03:50 Globulin 3.4 g/dL (2.5-4.5) 02/26/18 03:50 Albumin/Globulin Ratio 0.9 Ratio (1.1-2.1) L 02/26/18 03:50 - Plan (1) Acute bronchitis Status: Acute Qualifiers: Bronchitis organism: unspecified organism Qualified Code(s): J20.9 - Acute bronchitis, unspecified Plan: CONTINUE PNEUMONIA PATHWAY. BLOOD AND SPUTUM CUTLURES COLLECTED ON ADMISSION. IV ATBX, RESP THERAPY. RESUME HOME MEDS. SUPPLEMENTAL O2 BP MONITORING. REVIEVED CT WITH PT. WILL CONTINUE IV ATBX, RESP THERAPY, HOME MEDS. BP CONTROL, BUDESONIDE NEB, IV LASIX WITH I & OS. MUCOMYST (2) Chest pain Status: Acute Plan: CT THORAX WITH CONTRAST, SEE PREVIOUS ABNORMAL T SPINE CT. BP MONITORING , RESP TREATMENT, CARDIAC PROFILE. EKG MONITORING (3) Shortness of breath Status: Acute (4) JOYA (generalized anxiety disorder) Status: Acute (5) GERD (gastroesophageal reflux disease) Status: Acute (6) HTN (hypertension) Status: Chronic Qualifiers: Hypertension type: essential hypertension Qualified Code(s): I10 - Essential (primary) hypertension (7) Osteoarthritis Status: Chronic Qualifiers: Osteoarthritis location: multiple joints
[2018-02-26] MEDS: MUCOMYST 20% 200 MG/ML NEB SCH ×2 (14:34→17:29)
[2018-02-26] MEDS ORDERED: NS 1/2 1000 ML IV 1,000 ML IV ONE (17:03)
[2018-02-26] MEDS ORDERED: POTASSIUM CHL 60 MEQ/NS 0.45% 500 ML IV PRN (19:54)
[2018-02-26] MEDS ORDERED: POTASSIUM CHL 40 MEQ/NS 0.45% 500 ML IV PRN (19:54)
[2018-02-26] MEDS ORDERED: K-LYTE EFFERVESCENT PO PRN (19:54)
[2018-02-26] MEDS ORDERED: POTASSIUM CHLORIDE LIQ 20 MEQ UDC PO PRN (19:54)
[2018-02-26] MEDS ORDERED: K-RIDER 10 MEQ/NS 100 ML 10 MEQ/100 ML BAG IV PRN (19:54)
[2018-02-26] MEDS: CELEXA PO SCH (20:41)
[2018-02-26] MEDS: DIOVAN TAB 80 MG PO SCH (20:41)
[2018-02-26] MEDS: SINGULAIR TAB 10 MG PO SCH (20:42)
[2018-02-26] MEDS: XANAX PO PRN (22:21)
[2018-02-27] MEDS ORDERED: MUCOMYST 20% 200 MG/ML NEB SCH
[2018-02-27] MEDS: PULMICORT NEB TX 0.5 MG NEB SCH ×2 (01:02→09:02)
[2018-02-27] MEDS: MUCOMYST 20% 200 MG/ML NEB SCH ×4 (01:03→16:07)
[2018-02-27] MEDS: XOPENEX 1.25 MG/3 ML NEBULE NEB SCH ×4 (01:04→16:07)
[2018-02-27] MEDS ORDERED: NS 1/2 1000 ML IV 1,000 ML IV ONE (05:05)
[2018-02-27 05:38] LABS: BASOPHILS # (AUTO) 0.1 X10^3/uL (0.0-0.1); EOSINOPHILS # (AUTO) 0.4 x10^3/uL (0.0-0.2); EOSINOPHILS % (AUTO) 5.5 % (0.9-2.9); HEMATOCRIT 31.4 % (36.0-47.0); HEMOGLOBIN 10.7 g/dL (12.0-16.0); LYMPHOCYTES % (AUTO) 29.6 % (21.0-51.0); MEAN CORPUSCULAR HEMOGLOBIN 28.9 pg (27.0-34.0); MEAN CORPUSCULAR HGB CONC 34.2 g/dL (33.0-35.0); MEAN CORPUSCULAR VOLUME 84.6 fL (80.0-100.0); MEAN PLATELET VOLUME 7.3 fL (7.4-11.0); MONOCYTES # (AUTO) 0.6 x10^3/uL (0.3-0.8); MONOCYTES % (AUTO) 8.8 % (0.0-13.0); NEUTROPHILS # (AUTO) 3.8 x10^3/uL (2.2-4.8); NEUTROPHILS % (AUTO) 55.1 % (42.0-75.0); PLATELET COUNT 298 X10^3/uL (150.0-450.0); RED BLOOD COUNT 3.71 X10^6/uL (3.5-5.4); RED CELL DISTRIBUTION WIDTH 14.6 % (11.6-16.5); WHITE BLOOD COUNT 6.9 X10^3/uL (3.6-10.0)
[2018-02-27] MEDS: NS 1/2 1000 ML IV 1,000 ML IV SCH ×2 (05:39→18:03)
[2018-02-27] MEDS: ZOSYN VIAL 4.5 GM 4.5 GM in NS 100 ML IV + SPIKE MINIBAG* 100 ML IV SCH ×3 (05:43→21:41)
[2018-02-27 05:57] LABS: ALANINE AMINOTRANSFERASE 21 Units/L (12-78); ALBUMIN 2.9 g/dL (3.4-5.0); ALKALINE PHOSPHATASE 77 Units/L (46-116); ASPARTATE AMINO TRANSFERASE 14 Units/L (15-37); BLOOD UREA NITROGEN 12 mg/dL (7-18); CALCIUM 8.6 mg/dL (8.5-10.1); CHLORIDE 102 mmol/L (98-107); COR CA(FOR HYPOALB) 9.5 mg/dL (8.5-10.1); CREATININE 0.91 mg/dL (0.55-1.02); SODIUM 143 mmol/L (136-145); TOTAL PROTEIN 6.5 g/dL (6.4-8.2); eGFR BLACK RACES > 60 (>60); eGFR NON BLACK RACES > 60 (>60)
--- NOTE | 2018-02-27 07:24 | RAD ---
HISTORY: 57-year-old female with dyspnea. History of asthma. Study: Frontal view of the chest. Comparison: CT chest 02/25/2018, chest radiograph 02/24/2018. Findings: Stable hiatal hernia. The trachea is midline. The cardiac silhouette is stably enlarged with low lung volumes and bronchov ascular crowding with prominent interstitium and perihilar lung markings. No focal consolidation, ef fusion or pneumothorax. Soft tissues are unremarkable. Osseous structures are unremarkable. IMPRESSION: 1. No acute cardiopulmonary disease. Reported By:
[2018-02-27] MEDS ORDERED: ALLEGRA ONE (08:22)
[2018-02-27] MEDS: CELEBREX PO SCH (09:00)
[2018-02-27] MEDS: ALLEGRA PO SCH (09:00)
[2018-02-27] MEDS: LEVAQUIN PREMIX IV 750 MG 750 MG/150 ML BAG IV SCH (09:00)
[2018-02-27] MEDS: TAMBOCOR PO SCH ×2 (09:01→21:47)
[2018-02-27] MEDS: MICRO K EXTEN CAP 10 MEQ PO SCH (09:01)
[2018-02-27] MEDS: NexIUM PO SCH (09:01)
[2018-02-27] MEDS: SENOKOT PO SCH (09:01)
[2018-02-27] MEDS: ROBITUSSIN DM PO SCH (09:01)
[2018-02-27] MEDS: FLONASE NASAL SPRAY ENOSTRIL SCH (12:52)
[2018-02-27] MEDS: ROBITUSSIN CF SYRUP PO SCH ×3 (12:52→21:45)
[2018-02-27] MEDS: MAGNESIUM SULFATE 1 GM/100 mL PREMIX 1 GM/100 ML BAG IV PRN (21:41)
[2018-02-27] MEDS: CELEXA PO SCH (21:44)
[2018-02-27] MEDS: SINGULAIR TAB 10 MG PO SCH (21:46)
[2018-02-27] MEDS: DIOVAN TAB 80 MG PO SCH (21:50)
[2018-02-28] MEDS: MAGNESIUM SULFATE 1 GM/100 mL PREMIX 1 GM/100 ML BAG IV PRN (02:00)
[2018-02-28] MEDS: MUCOMYST 20% 200 MG/ML NEB SCH ×2 (04:23→05:19)
[2018-02-28] MEDS: XOPENEX 1.25 MG/3 ML NEBULE NEB SCH ×2 (04:23→05:19)
[2018-02-28] MEDS: PULMICORT NEB TX 0.5 MG NEB SCH (04:23)
[2018-02-28 05:58] LABS: BASOPHILS # (AUTO) 0.1 X10^3/uL (0.0-0.1); EOSINOPHILS # (AUTO) 0.4 x10^3/uL (0.0-0.2); EOSINOPHILS % (AUTO) 5.6 % (0.9-2.9); HEMATOCRIT 32.8 % (36.0-47.0); HEMOGLOBIN 11.2 g/dL (12.0-16.0); LYMPHOCYTES # (AUTO) 2.2 X10^3/uL (1.3-2.9); LYMPHOCYTES % (AUTO) 28.4 % (21.0-51.0); MEAN CORPUSCULAR HEMOGLOBIN 28.9 pg (27.0-34.0); MEAN CORPUSCULAR HGB CONC 34.2 g/dL (33.0-35.0); MEAN CORPUSCULAR VOLUME 84.4 fL (80.0-100.0); MONOCYTES # (AUTO) 0.6 x10^3/uL (0.3-0.8); NEUTROPHILS # (AUTO) 4.6 x10^3/uL (2.2-4.8); PLATELET COUNT 335 X10^3/uL (150.0-450.0); RED BLOOD COUNT 3.88 X10^6/uL (3.5-5.4); RED CELL DISTRIBUTION WIDTH 14.6 % (11.6-16.5); WHITE BLOOD COUNT 7.9 X10^3/uL (3.6-10.0)
[2018-02-28] MEDS: ZOSYN VIAL 4.5 GM 4.5 GM in NS 100 ML IV + SPIKE MINIBAG* 100 ML IV SCH (06:17)
[2018-02-28 06:22] LABS: ALANINE AMINOTRANSFERASE 27 Units/L (12-78); ALKALINE PHOSPHATASE 81 Units/L (46-116); ASPARTATE AMINO TRANSFERASE 17 Units/L (15-37); BLOOD UREA NITROGEN 7 mg/dL (7-18); CALCIUM 8.5 mg/dL (8.5-10.1); CARBON DIOXIDE 30.5 mmol/L (21-32); CHLORIDE 105 mmol/L (98-107); COR CA(FOR HYPOALB) 9.3 mg/dL (8.5-10.1); CREATININE 0.81 mg/dL (0.55-1.02); SODIUM 142 mmol/L (136-145); TOTAL PROTEIN 6.7 g/dL (6.4-8.2); eGFR BLACK RACES > 60 (>60); eGFR NON BLACK RACES > 60 (>60)
[2018-02-28] MEDS ORDERED: ALLEGRA ONE (08:59)
[2018-02-28] MEDS: CELEBREX PO SCH (09:27)
[2018-02-28] MEDS: FLONASE NASAL SPRAY ENOSTRIL SCH (09:27)
[2018-02-28] MEDS: ALLEGRA PO SCH (09:27)
[2018-02-28] MEDS: SENOKOT PO SCH (09:28)
[2018-02-28] MEDS: MICRO K EXTEN CAP 10 MEQ PO SCH (09:28)
[2018-02-28] MEDS: ROBITUSSIN CF SYRUP PO SCH (09:28)
[2018-02-28] MEDS: LEVAQUIN PREMIX IV 750 MG 750 MG/150 ML BAG IV SCH (09:28)
[2018-02-28] MEDS: NexIUM PO SCH (09:28)
[2018-02-28] MEDS: TAMBOCOR PO SCH (09:28)
[2018-02-28 10:39] VITALS: BP 114/67
== END 2018-02-28 11:10 | disposition home or self-care (01) | DRG 195 ==
LOC: OBS 16:28 → MED/SURG 02-26 17:06
PROVIDERS: ADMIT Internal Medicine; ATTEND Internal Medicine
DX: J18.8 Other pneumonia, unspecified organism (principal); R06.02 Shortness of breath; R07.89 Other chest pain; R11.2 Nausea with vomiting, unspecified; J44.9 Chronic obstructive pulmonary disease, unspecified; I25.10 Atherosclerotic heart disease of native coronary artery without angina pectoris; K21.9 Gastro-esophageal reflux disease without esophagitis; M19.90 Unspecified osteoarthritis, unspecified site; I10 Essential (primary) hypertension; M54.5 Low back pain; J45.998 Other asthma; I49.8 Other specified cardiac arrhythmias
CPT/HCPCS: 36415; 71045; 71046; 71260; 80053; 82550; 82553; 83735; 84484; 85025; 87040; 87070; 87205; 93005; 93010; 94640; 94760; A4222; J1940; J1956; J2543; J7608; J7620; J7626

== ENCOUNTER 2018-04-08 09:48 | Day surgery (SDC) | payer OTHER, MEDICAID ==
[2018-04-08] MEDS ORDERED: D5 LR 1000 ML 1,000 ML IV ONE (10:09)
[2018-04-08] MEDS ORDERED: DIPRIVAN VIAL 20 ML ONE (11:16)
[2018-04-08] MEDS ORDERED: DIPRIVAN VIAL 10 ML ONE (11:35)
[2018-04-08 12:03] VITALS: BP 122/55
== END 2018-04-08 12:05 | disposition home or self-care (01) ==
LOC: SURG1 09:48
PROVIDERS: ATTEND Internal Medicine Gastroenterology
PROC: 0DB68ZX Excision of Stomach, Via Natural or Artificial Opening Endoscopic, Diagnostic (ICD-10-PCS; principal; 2018-04-08 12:00)
PROC: 0DJD8ZZ Inspection of Lower Intestinal Tract, Via Natural or Artificial Opening Endoscopic (ICD-10-PCS; principal; 2018-04-08 12:00)
PROC: 0DB38ZX Excision of Lower Esophagus, Via Natural or Artificial Opening Endoscopic, Diagnostic (ICD-10-PCS; principal; 2018-04-08 12:00)
PROC: 0D757ZZ Dilation of Esophagus, Via Natural or Artificial Opening (ICD-10-PCS; principal; 2018-04-08 12:00)
PROC: 0DB88ZX Excision of Small Intestine, Via Natural or Artificial Opening Endoscopic, Diagnostic (ICD-10-PCS; principal; 2018-04-08 12:00)
DX: R13.19 Other dysphagia (principal); R10.13 Epigastric pain; K21.9 Gastro-esophageal reflux disease without esophagitis; R93.8 Abnormal findings on diagnostic imaging of other specified body structures; K20.8 Other esophagitis; K55.9 Vascular disorder of intestine, unspecified; K22.2 Esophageal obstruction; K22.4 Dyskinesia of esophagus
CPT/HCPCS: A4217; J3490; J7120